=== PATIENT | female | born 1980 | race Caucasian/White ===

== ENCOUNTER 2018-10-10 23:18 | Emergency (ER) | payer OTHER ==
[2018-10-11] MEDS ORDERED: KETOROLAC TROMETHAMINE 60 MG/2 ML SDV IM ONE (02:16)
[2018-10-11 02:22] LABS: APPEARANCE,URINE CLEAR; BILIRUBIN,URINE NEGATIVE (NEGATIVE); COLOR,URINE YELLOW; GLUCOSE, URINE NEGATIVE (NEGATIVE); KETONES,URINE NEGATIVE (NEGATIVE); LEUKOCYTE ESTERASE,URINE NEGATIVE (NEGATIVE); NITRITE,URINE NEGATIVE (NEGATIVE); PROTEIN,URINE NEGATIVE (NEGATIVE); URINE SPECIFIC GRAVITY 1.014; UROBILINOGEN,URINE NEGATIVE mg/dL (<2.0)
[2018-10-11 02:46] LABS: ABSOLUTE EOSINOPHILS # (AUTO) 0.1 10^3/uL (0.0-0.6); ABSOLUTE LYMPHOCYTES (AUTO) 1.2 10^3/uL (0.5-4.7); ABSOLUTE MONOCYTES (AUTO) 0.3 10^3/uL (0.1-1.4); BASOPHILS % (AUTO) 0.3 % (0-2); EOSINOPHILS % (AUTO) 0.7 % (0-6); HEMATOCRIT 40.6 % (36.0-47.0); HEMOGLOBIN 13.9 g/dL (12.0-15.5); LYMPHOCYTES % (AUTO) 14.2 % (13-45); MEAN CORPUSCULAR HEMOGLOBIN 27.6 pg (27.0-33.4); MEAN CORPUSCULAR HGB CONC 34.3 g/dL (32.0-36.0); MEAN CORPUSCULAR VOLUME 81 fl (80-97); MONOCYTES % (AUTO) 3.5 % (3-13); PLATELET COUNT 288 10^3/uL (150-450); RED BLOOD COUNT 5.04 10^6/uL (3.72-5.28); RED CELL DISTRIBUTION WIDTH 15.5 % (11.5-14.0); SEGMENTED NEUTROPHILS % (AUTO) 81.3 % (42-78); TOTAL CELLS COUNTED % (AUTO) 100 %; WHITE BLOOD COUNT 8.6 10^3/uL (4.0-10.5)
--- NOTE | 2018-10-11 03:03 | RADIOLOGY REPORT (SQ) ---
EXAM DESCRIPTION: US ABDOMEN LIMITED COMPLETED DATE/TME: 10/11/2018 02:16 CLINICAL HISTORY:38 years Female, ruq pain TECHNIQUE: Grayscale and Doppler sonogram of the right upper quadrant abdomen. COMPARISON: None. FINDINGS: Pancreas: Not well visualized due to body habitus. Aorta: Visualized portion is unremarkable. IVC: Visualized portion is unremarkable. Liver: Fatty No mass lesion. Main portal vein: Normal hepatopetal flow. Gallbladder: Multiple gallstones are present. No gallbladder wall thickening. No pericholecystic fluid. Common bile duct: 0.2 cm. Right kidney: 10.6 cm. No hydronephrosis. No nephrolithiasis. IMPRESSION: Cholelithiasis but no sonographic evidence of acute cholecystitis.
[2018-10-11 03:06] LABS: ALANINE AMINOTRANSFERASE 51 U/L (9-52); ALBUMIN 4.6 g/dL (3.5-5.0); ALKALINE PHOSPHATASE 122 U/L (38-126); ANION GAP 10 (5-19); ASPARTATE AMINO TRANSFERASE 29 U/L (14-36); BILIRUBIN,DIRECT 0.3 mg/dL (0.0-0.4); BILIRUBIN,TOTAL 0.6 mg/dL (0.2-1.3); BLOOD UREA NITROGEN 14 mg/dL (7-20); CALCIUM 9.5 mg/dL (8.4-10.2); CARBON DIOXIDE 25 mmol/L (22-30); CHLORIDE 102 mmol/L (98-107); GLUCOSE 152 mg/dL (75-110); LIPASE 57.8 U/L (23-300); SODIUM 136.6 mmol/L (137-145); TOTAL PROTEIN 7.6 g/dL (6.3-8.2)
--- NOTE | 2018-10-11 03:11 | ER Document Report ---
ED General - General Chief Complaint: Abdominal Pain Stated Complaint: FLANK PAIN Time Seen by Provider: 10/11/18 01:28 Primary Care Provider: SHANNA LERMA MD [NO LOCAL MD] - Follow up as needed Notes: Patient is a 38-year-old female with a past medical history of essential hypertension off medications for several years, no prior abdominal surgical history presents with 2-3 weeks of right upper and right side abdominal pain. Patient describes this as a throbbing, aching pain worsened with movement, stand ing or any form of activity. Has been unchanged since onset. She has not tried anything to improve the pain. States there is no significant association with eating. Denies any fever or constitutional symptoms. No flank pain. No dysuria. Denies any history of similar symptoms in the past. Has not seen her general physician regarding today's concerns. Denies any use of estrogen, history of DVT or pulmonary embolus. Denies any pleuritic pain. No shortness of breath. TRAVEL OUTSIDE OF THE [place] IN LAST 30 DAYS: No Past Medical History - General Information source: Patient - Social History Smoking Status: Never Smoker Frequency of alcohol use: None Drug Abuse: None Lives with: Family Family History: Reviewed & Not Pertinent Patient has suicidal ideation: No Patient has homicidal ideation: No Renal/ Medical History: Denies: Hx Peritoneal Dialysis Review of Systems - Review of Systems Notes: Constitutional: Negative for fever. HENT: Negative for sore throat. Eyes: Negative for visual changes. Cardiovascular: Negative for chest pain. Respiratory: Negative for shortness of breath. Gastrointestinal: Positive for right upper abdominal pain and nausea Genitourinary: Negative for dysuria. Musculoskeletal: Negative for back pain. Skin: Negative for rash. Neurological: Negative for headaches, weakness or numbness. 10 point ROS negative except as marked above and in HPI. Physical Exam - Vital signs Vitals: Temp Pulse Resp BP Pulse Ox 98.2 F 64 20 223/91 H 100 10/10/18 23:33 10/10/18 23:33 10/10/18 23:33 10/10/18 23:33 10/10/18 23:33 Interpretation: Hypertensive - Untreated essential hypertension Notes: PHYSICAL EXAMINATION: GENERAL: Well-appearing, well-nourished and in no acute distress. HEAD: Atraumatic, normocephalic. EYES: Pupils equal round and reactive to light, extraocular movements intact, sclera anicteric, conjunctiva are normal. ENT: nares patent, oropharynx clear without exudates. Moist mucous membranes. NECK: Normal range of motion, supple without lymphadenopathy LUNGS: Breath sounds clear to auscultation bilaterally and equal. No wheezes rales or rhonchi. HEART: Regular rate and rhythm without murmurs ABDOMEN: Soft, no CVA tenderness, minimal tenderness the right upper quadrant, normoactive bowel sounds. No guarding, no rebound. No masses appreciated. EXTREMITIES: Normal range of motion, no pitting or edema. No cyanosis. NEUROLOGICAL: No focal neurological deficits. Moves all extremities spontaneously and on command. PSYCH: Normal mood, normal affect. SKIN: Warm, Dry, normal turgor, no rashes or lesions noted. Course - Re-evaluation Re-evalutation: 10/11/18 03:08 Patient presents with 2-3 weeks of intermittent right upper quadrant and right side pain of undetermined etiology. Patient is well in appearance on exam, laughing and smiling with me during examination. Vitals are within normal limits without tachycardia, fever although patient is noted to be markedly hypertensive. The patient reports that she is supposed to be on medications but is not currently taking anything due to lack of insurance or access to primary care. On examination she has minimal tenderness to palpation of the right upper quadrant but has no other areas of localized abdominal tenderness. Pain is reproduced with twisting motion of the thorax and abdomen. No CVA tenderness. Right upper quadrant ultrasound with evidence of cholelithiasis without evidence of acute cholecystitis. Low clinical suspicion that this is the trigger for patient's pain as there is no apparent association with food intake. Urinalysis without any evidence of pyelonephritis. She is PERC criteria negative and I do not clinically suspect an acute pulmonary embolus. The exact etiology of the patient's symptoms is uncertain and I have emphasized with her that she needs to have a low threshold to return to the emergency department regarding her symptoms today. We have empirically begin treating with topical Voltaren gel, Tylenol and heat. In regards the patient's blood pressure: I have started her on hydrochlorothiazide and provide her several months of refills. I have asked that she follow-up in the community can clinic to get her severe hypertension under control. At this time will discharge with return precautions and follow- up recommendations. Verbal discharge instructions given a the bedside and opportunity for questions given. Medication warnings reviewed. Patient is in agreement with this plan and has verbalized understanding of return precautions and the need for primary care follow-up in the next 24-72 hours. - Vital Signs Vital signs: Temp Pulse Resp BP Pulse Ox 98.2 F 64 20 223/91 H 100 10/10/18 23:33 10/10/18 23:33 10/10/18 23:33 10/10/18 23:33 10/10/18 23:33 - Laboratory Result Diagrams: 10/11/18 02:23 10/11/18 02:23 Laboratory results interpreted by me: 10/11/18 02:23 RDW 15.5 H Seg Neutrophils % 81.3 H - Diagnostic Test Radiology reviewed: Reports reviewed Discharge - Discharge Clinical Impression: Right upper quadrant abdominal pain of unknown etiology, Essential hypertension Condition: Good Disposition: HOME, SELF-CARE Additional Instructions: You have been seen in the Emergency Department (ED) for abdominal pain. Your evaluation did not identify a clear cause of your symptoms but was generally reassuring. Your ultrasound of the gallbladder did show gallstones but no evidence of acute gallbladder inflammation. Please follow up with your doctor as soon as possible regarding today's emergent visit and the symptoms that are bothering you. You have also been referred to our general surgeon for evaluation of whether or not the gallbladder could be causing the pain you are experiencing. Please begin taking Tylenol 1000 mg every 6 hours and use the topical Voltaren gel that has been prescribed as needed for pain to the right upper abdomen. Return to the ED if your abdominal pain worsens or fails to improve, you develop bloody vomiting, bloody diarrhea, you are unable to tolerate fluids due to vomiting, fever greater than 101, or other symptoms that concern you. You were seen today for blood pressure that was high. This is a long-term risk factor for multiple medical problems including heart attack and stroke. However, the blood pressure in of itself will not cause you to have an acute stroke or heart attack over the course of just several days or weeks. You need to have a gradual reduction of your blood pressure back to normal levels over the next several months in conjunction with your primary care physician. Return if you develop headache, weakness, numbness, chest pain, pass out, or have any other symptoms that are concerning to you. Prescriptions: Amlodipine Besylate [Norvasc 5 mg Tablet] 5 mg PO DAILY #30 tablet Diclofenac Sodium [Voltaren] 100 gm TP TID PRN #100 gel..gm. PRN Reason: Hydrochlorothiazide [Hydrodiuril 50 mg Tablet] 50 mg PO QAM #30 tablet Referrals: MICHELLE LOWE MD [ACTIVE STAFF] - Follow up as needed SHANNA LERMA MD [NO LOCAL MD] - Follow up in 3-5 days
[2018-10-11 03:48] VITALS: BP 205/100
== END 2018-10-11 03:46 | disposition home or self-care (01) ==
LOC: ER 23:18
DX: R10.11 Right upper quadrant pain (principal); R11.0 Nausea; I10 Essential (primary) hypertension
CPT/HCPCS: 99284; 36415; 83690; 84703; 85025; 80053; 81001; 76705; J1885